=== PATIENT | female | born 1990 | race Hispanic/Latino ===

== ENCOUNTER → 2024-07-08 | Outpatient (CLI) | payer BC ==
--- NOTE | 2024-07-08 10:24 | HMCIMG ---
US ABDOMINAL COMPLETE HISTORY: Elevated liver function COMPARISON: None TECHNIQUE: Multiple transverse and longitudinal ultrasound images of the abdomen were obtained. FINDINGS: Abdominal aorta and inferior vena cava are unremarkable. The visualized portion of the pancreas is within normal limits. Liver measures 19.6 cm. Liver is echogenic consistent with liver parenchymal disease. No gallstone is seen. Common duct measures 5 mm. No evidence of gallbladder wall thickening is seen. Both kidneys are seen. Right kidney measures 9.4 x 4.2 x 5 cm. Left kidney measures 9.9 x 5.6 x 5.1 cm. No hydronephrosis is seen of the both kidneys. The spleen is grossly unremarkable. IMPRESSION: 1. No gallstone or ductal dilatation is seen. 2. No hydronephrosis is seen.
== END | disposition home or self-care (01) ==
LOC: RAH 09:06
PROVIDERS: ATTEND Nurse Practitioner Family
DX: R79.89 Other specified abnormal findings of blood chemistry (principal)
CPT/HCPCS: 76700